=== PATIENT | male | born 1960 | race Caucasian/White ===

== ENCOUNTER 2024-02-22 16:59 | Emergency (ER) | payer BC, SELFPAY ==
[2024-02-22 17:13] VITALS: BP 171/91
[2024-02-22 17:40] LABS: % Basophils 0.4 % (0-2); % Eosinophils 0.7 % (0-6); % Immature Granulocytes 0.2 % (0-0.5); % Lymphocytes 26.2 % (20.5-51.1); % Monocytes 8.5 % (1.7-9.3); Absolute Eosinophils 0.1 10^3/uL (0-0.7); Absolute Lymphocytes 2.6 10^3/uL (1.2-3.4); Absolute Monocytes 0.9 10^3/uL (0.1-0.6); Absolute Neutrophils 6.4 10^3/uL (1.4-6.5); Hemoglobin 14.8 g/dL (13.0-18.0); Mean Corp Hgb Conc. 36.1 g/dL (33.0-37.0); Mean Corpuscular Volume 88.7 fL (80.0-94.0); Mean Platelet Volume 9.4 fL (7.4-10.4); Nucleated Red Blood Cells % 0 % (-); Platelet Count 289 10^3/uL (130-400); Red Blood Cell Count 4.62 10^6/uL (4.70-6.10); Red Cell Dist. Width 12.8 % (11.5-14.5)
[2024-02-22 17:53] LABS: Urine Albumin Negative (Neg - Trace); Urine Bilirubin Negative (Negative); Urine Character Clear (Clear); Urine Color Yellow; Urine Glucose Negative (Negative); Urine Ketone Negative (Negative); Urine Leukocyte Negative (Negative); Urine Nitrite Negative (Negative); Urine Occult Blood Trace (Negative); Urine Specific Gravity 1.015 (<1.030); Urine Urobilinogen Negative (Neg - 1+); Urine pH 6.5 (5.0-9.0)
[2024-02-22 17:54] LABS: ALT (SGPT) 24 U/L (0-50); AST (SGOT) 28 U/L (17-59); Albumin 5.1 g/dl (3.5-5.0); Alkaline Phosphatase 56 U/L (38-126); Blood Urea Nitrogen 16 mg/dl (9-20); Carbon Dioxide 30 mmol/L (22-30); Chloride 97 mmol/L (98-107); Glucose 103 mg/dl (70-99); Lipase 88 U/L (23-300); Potassium 3.7 mmol/L (3.5-5.1); Sodium 139 mmol/L (135-145); Total Bilirubin 0.6 mg/dl (0.2-1.3); Total Protein 7.9 g/dl (6.3-8.2); eGFR > 60.00
[2024-02-22 18:31] VITALS: BMI 23.7
[2024-02-22 19:09] LABS: Urine Red Blood Cell 0-2 /HPF (0-2)
--- NOTE | 2024-02-22 19:09 | ED.GENMED ---
History of Present Illness
General
Chief Complaint: Abdominal Symptoms
Source: patient
Exam Limitations: none
Time Seen by Provider: 02/22/24 18:22
History of Present Illness
History of Present Illness:
This is a 63 year old male that comes in with c/o abd pain. States that he started a few days ago with some abd discomfort. States that last night the pain got worse. Today he went to see the PCP at 3:30pm and he was sent to the ER. Denies any
fever, chills, chest pain, SOB, nausea, vomiting, diarrhea, headache, dizziness, urinary burning.
Past History
Past History
ED Past Medical History: Cancer (Melanoma surgery), GERD and HTN
ED Past Surgical History: Other (Nasal Surgery)
Social History
Tobacco: Non-smoker
Alcohol: Occasional
Personal:
Living: with family
Review of Systems
Review of Systems
All Other Systems: ROS reviewed and negative except as documented in HPI and ROS
Constitutional: Reports no symptoms; Denies fever or chills
EENT: Reports no symptoms
Respiratory: Reports no symptoms; Denies cough or trouble breathing
Cardiac: Reports no symptoms; Denies chest pain
ABD/GI: Reports abdominal pain; Denies nausea, vomiting or diarrhea
: Reports no symptoms; Denies dysuria, frequency or urgency
Musculoskeletal: Reports no symptoms
Skin: Reports no symptoms
Neurological: Reports no symptoms; Denies dizzy or headache
Psychiatric: Reports no symptoms
Phy Exam
General Physical Exam
General Presentation: no apparent distress
General age: appears stated age
General Skin: warm and dry
General Habitus: normal
General Mental: alert
General Hydration: appears well hydrated
ENT Exam
ENT Exam: TM's normal, pharynx normal and neck supple
Eye Exam
Eye Exam: EOMI
Cardiovascular Exam
Cardiovascular Exam: regular rate/rhythm, no edema, no murmur and normal peripheral pulses
Pulmonary Exam
Pulmonary Exam: lungs clear, no respiratory distress, no rales, chest non tender, no crackles, no rhonchi, no wheezing and no cough
Gastrointestinal Exam
Gastrointestinal Exam: normal bowel sounds, soft, no organomegaly, no pulsatile mass, non distended and tender (Right lower abd tenderness with palpation)
Musculoskeletal Exam
Musculoskeletal Exam: full ROM and no edema
Skin Exam
Skin Exam: normal color, warm/dry, no rash and no petechia
Psychiatric Exam
Psychiatric Exam: normal mood/affect
Course
Orders/Labs/Results
Orders:
Orders
02/22/24 17:28
CMP [Comprehensive Metabolic Panel] Urgent
Complete Blood Count/With Diff Urgent
Lipase Urgent
Urinalysis Reflex To Culture Urgent
Date Specimen was Collected: 02/22/24
Time Specimen was Collected: 17:16
Urine Microscopic Reflex Cult Urgent
02/22/24 19:08
CT Abd/pel W Iv And Oral Contr Urgent
Comment:
Reason For Exam: Right lower abd pain
0.9% Sodium Chloride 1000 ml [Nss] 1,000 ml IV BOLUS
Iohexol [Omnipaque] See Protocol PO NOW STA
Abnormal Lab Results
02/22/24
17:28
RBC 4.62 L 10^6/uL
(4.70-6.10)
MCH 32.0 H pg
(27.0-31.0)
Absolute Monos (auto) 0.9 H 10^3/uL
(0.1-0.6)
Chloride 97 L mmol/L
(98-107)
Glucose 103 H mg/dl
(70-99)
Albumin 5.1 H g/dl
(3.5-5.0)
Ur Occult Blood Reflex Trace A
(Negative)
02/22/24 17:28
02/22/24 17:28
Glucose nonfasting. Urine negative for infection. Lipase normal at 88
Vital Signs
Initial and Last Documented VS:
Initial Vital Signs
Temp Pulse Resp BP Pulse Ox
98.5 F 77 16 171/91 98
02/22/24 17:13 02/22/24 17:13 02/22/24 17:13 02/22/24 17:13 02/22/24 17:13
Last Documented Vital Signs
Temp Pulse Resp BP Pulse Ox
98.5 F 86 18 160/104 95
02/22/24 17:13 02/22/24 22:35 02/22/24 22:35 02/22/24 22:35 02/22/24 22:35
MDM/Problems Addressed
Differential Diagnosis Includes:
Appendicitis. renal calculus,
MDM/Problems Addressed:
This is a 63 year old male that comes in with c/o abd pain. States that he started a few days ago with right lower abd pain. States that he went to the PCP today and was told to come to the ER for a CT scan.
will get labs and CT scan. IV fluids. Patient refused pain medication.
back into see patient. Explained that he has significant diverticulosis with early diverticulitis. Will start patient on antibiotics. Patient to follow up with the Family doctor and also try to see his GI specilist as he has not had a Colonoscopy
for 6 years. Patient to return with increased pain, fever, or any other concerns .
Chronic conditions affecting care:
NA
Acute Exacerbation and/or Progression of Chronic Illness:
NA
*Radiology
Radiology exam reviewed: radiology read reviewed (CT-Extensive colonic diverticulosis with mild wall thickening and stranding, likely early acute sigmoid diverticulitis. Fat-containing right inguinal hernia. )
*Pulse Oximetry
Patient hypoxic: no
*EKG
Interpreted by ED Provider?: NA
Rate: EKG- N/A
*[facility] Associate Interpretation
Rate: [facility]- N/A
*Critical Care Note
Total Time (30-74mins, 75-104mins- exclusive of procedures): Not Applicable
ED Attending Note
-
Portions of this chart may have been created with voice recognition software.� Occasional wrong word or��sound alike� substitutions may have occurred due to the inherent limitations of voice recognition software.
Discharge Plan
Departure
Patient Disposition: Home (Routine Discharge)
Date of Disposition: 02/22/24
Time of Disposition: 22:59
Patient with high blood pressure during this ER visit?: Yes
Condition: Good
Covid-19: Not Applicable
Discharge Problem:
Diverticulitis
Instructions: Diverticulitis (DC), BLOOD PRESSURE
Prescriptions:
New
amoxicillin-pot clavulanate 875-125 mg tablet
1 tab PO BID Qty: 19 0RF
Referrals:
Slava Macedo, [Family Provider] - Follow up in 5-7 days
Activity Restrictions/Additional Instructions:
As discussed, our blood work is normal. Your CT shows that you have diverticulosis and early signs of diverticulitis. You have been given your first dose of antibiotic here and a prescription has been sent to your Pharmacy. Please follow up with the
family doctor in the next 5-7 days for further evaluation. You will also need to see the GI specialist after you are feeling better. IF YOU HAVE FEVER, INCREASED ABDOMINAL PAIN, OR YOU HAVE ANY OTHER CONCERNS PLEASE RETURN TO THE EMERGENCY ROOM.
Interventions
Interventions:
*Risk Screen - Suicide Last Done: 02/22/24 18:28
*General Assessment Last Done: 02/22/24 18:28
*Neglect/Abuse Screening Last Done: 02/22/24 18:28
ED- Fall Risk Assessment Last Done: 02/22/24 18:28
*ED COVID-19 Vaccine History Last Done: 02/22/24 18:28
GT-Gblxvq-Qeybhvkiki Assessment Last Done: 02/22/24 18:28
Discharge Date and Time
Print Language: MAORI
[2024-02-22 19:33] VITALS: BP 155/99
[2024-02-22] MEDS: OMNIPAQUE 50 ML PO (19:35)
[2024-02-22] MEDS: NSS 1000 IV (19:42)
[2024-02-22 22:35] VITALS: BP 160/104
[2024-02-22] MEDS: AUGMENTIN 875 MG/125 MG 1 TABLET PO (23:11)
== END 2024-02-22 23:15 | disposition home or self-care (01) ==
LOC: EMR 16:59
PROVIDERS: Emergency Medicine; EMERGENCY PHYSICIAN Emergency Medicine; FAMILY PHYSICIAN Family Medicine
DX: K57.32 Diverticulitis of large intestine without perforation or abscess without bleeding (principal); I10 Essential (primary) hypertension
CPT/HCPCS: 99285; 96360; 74177; 80053; 81003; 81015; 83690; 85025; Q9967

== ENCOUNTER 2024-05-09 15:37 | Emergency (ER) | payer BC, SELFPAY ==
[2024-05-09 16:00] VITALS: BP 142/87
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
[2024-05-09] MEDS: NORCO 5/325 1 TABLET PO (17:34)
[2024-05-09] MEDS: ROXICODONE 5 MG PO (20:28)
[2024-05-09 20:52] VITALS: BP 145/82
== END 2024-05-09 20:55 | disposition home or self-care (01) ==
LOC: EMR 15:37
PROVIDERS: EMERGENCY PHYSICIAN Emergency Medicine; FAMILY PHYSICIAN Family Medicine
DX: S32.592A Other specified fracture of left pubis, initial encounter for closed fracture (principal); W19.XXXA Unspecified fall, initial encounter; Y93.55 Activity, bike riding; K21.9 Gastro-esophageal reflux disease without esophagitis; I10 Essential (primary) hypertension; Z85.820 Personal history of malignant melanoma of skin
CPT/HCPCS: 99283; 72110; 72220; 73502

== ENCOUNTER 2024-06-27 14:25 | Outpatient (RCR) | payer BC, SELFPAY | END 2024-06-27 23:59 | disposition home or self-care (01) | LOC: RPT 14:25 | PROVIDERS: ATTENDING PHYSICIAN Family Medicine Sports Medicine; FAMILY PHYSICIAN Family Medicine | DX: R10.2 Pelvic and perineal pain (principal); Z73.6 Limitation of activities due to disability; M62.81 Muscle weakness (generalized); R26.89 Other abnormalities of gait and mobility; S32.9XXD Fracture of unspecified parts of lumbosacral spine and pelvis, subsequent encounter for fracture with routine healing; V19.88XD Pedal cyclist (driver) (passenger) injured in other specified transport accidents, subsequent encounter | CPT/HCPCS: 97110; 97112; 97116; 97162 ==

== ENCOUNTER 2024-07-07 14:11 | Outpatient (RCR) | payer BC, SELFPAY | END 2024-07-08 07:21 | disposition home or self-care (01) | LOC: RPT 14:11 | PROVIDERS: ATTENDING PHYSICIAN Family Medicine Sports Medicine; FAMILY PHYSICIAN Family Medicine | DX: R10.2 Pelvic and perineal pain (principal); Z73.6 Limitation of activities due to disability; M62.81 Muscle weakness (generalized); R26.89 Other abnormalities of gait and mobility; S32.9XXD Fracture of unspecified parts of lumbosacral spine and pelvis, subsequent encounter for fracture with routine healing; V19.88XD Pedal cyclist (driver) (passenger) injured in other specified transport accidents, subsequent encounter | CPT/HCPCS: 97110 ==

== ENCOUNTER 2025-01-31 06:12 | Day surgery (SDC) | payer BC, SELFPAY ==
[2025-01-31] VITALS (8 sets, daily range): BP systolic 144–156; BP diastolic 86–96; BMI 23.1
[2025-01-31] MEDS: TYLENOL 1000 MG PO (09:58)
[2025-01-31] MEDS: CELEBREX 200 MG PO (09:58)
[2025-01-31] MEDS: NORMOSOL-R/PLASMALYTE-A 1000 IV (10:16)
== END 2025-01-31 13:38 | disposition home or self-care (01) ==
LOC: SDS 06:12
PROVIDERS: ATTENDING PHYSICIAN Orthopaedic Surgery
DX: S42.021A Displaced fracture of shaft of right clavicle, initial encounter for closed fracture (principal); W19.XXXA Unspecified fall, initial encounter
CPT/HCPCS: 23515; C1713; 73000; 76000; 93005